=== PATIENT | male | born 1970 | race Hispanic/Latino ===

== ENCOUNTER 2017-03-08 01:39 | Emergency (ER) | payer MEDICAID | END 2017-03-08 03:39 | disposition left against medical advice (07) | LOC: EDH 01:39 | DX: Z53.21 Procedure and treatment not carried out due to patient leaving prior to being seen by health care provider (principal); Z88.0 Allergy status to penicillin ==

== ENCOUNTER 2017-05-29 00:11 | Emergency (ER) | payer MEDICAID ==
[2017-05-29 00:51] LABS: BASOPHILS % (AUTO) 0.4 % (0.0-5.0); EOSINOPHILS % (AUTO) 0.4 % (0.0-8.0); LYMPHOCYTES % (AUTO) 17.2 % (21.0-51.0); MEAN CORPUSCULAR HEMOGLOBIN 30.1 pg (27.0-33.0); MEAN CORPUSCULAR VOLUME 86.1 fL (79-99); MONOCYTES % (AUTO) 4.3 % (3.0-13.0); NEUTROPHILS % (AUTO) 77.7 % (40.0-77.0); PLATELET COUNT (AUTO) 217 K/uL (130-400); RED BLOOD CELL COUNT(AUTO) 5.46 MIL/uL (4.50-6.20); WHITE BLOOD COUNT (AUTO) 9.1 K/uL (4.8-10.8)
[2017-05-29 00:58] LABS: CREATININE 1.1 mg/dL (0.5-1.5); POTASSIUM 3.5 mmol/L (3.5-5.1)
[2017-05-29 01:03] LABS: ALBUMIN 3.8 g/dL (3.5-5.0); BILIRUBIN,TOTAL 1.2 mg/dL (0.2-1.0); TOTAL PROTEIN, SERUM 7.8 g/dL (6.0-8.3)
== END 2017-05-29 02:10 | disposition home or self-care (01) ==
LOC: EDH 00:11
DX: R11.0 Nausea (principal); T50.995A Adverse effect of other drugs, medicaments and biological substances, initial encounter; F32.9 Major depressive disorder, single episode, unspecified; Z88.0 Allergy status to penicillin; Y92.89 Other specified places as the place of occurrence of the external cause
CPT/HCPCS: 36415; 80053; 85025

== ENCOUNTER 2018-05-19 23:39 | Emergency (ER) | payer MEDICAID ==
[2018-05-20] MEDS ORDERED: HYDROXYZINE HCL 25 MG TABLET ONE (00:23)
== END 2018-05-20 00:38 | disposition home or self-care (01) ==
LOC: EDH 23:39
DX: F41.9 Anxiety disorder, unspecified (principal); F32.9 Major depressive disorder, single episode, unspecified

== ENCOUNTER 2024-03-20 00:32 | Emergency (ER) | payer MEDICAID ==
[~2024-03-20] VITALS: Ht 180.3 cm; Wt 129.3 kg
[2024-03-20] MEDS ORDERED: CLIN-141 PO (00:41)
[2024-03-20] MEDS ORDERED: KETO10TA2 PO (00:41)
--- NOTE | 2024-03-20 01:00 | ERN ---
General Chief Complaint: Tooth Ache/Pain Stated Complaint: TOOTHACHE Time Seen by MD: 00:36 Time Seen by Midlevel: 00:36 Source: patient History of Present Illness Initial Comments Patient is a 53-year-old male presenting to the emergency department with right lower dental pain has been ongoing for the last couple of days but progressively got worse tonight. Denies any fever, chills, or any other symptoms at this time. Allergies: Coded Allergies: No Known Allergies (Unverified Allergy, Unknown, 03/20/24) Home Meds Active Scripts Clindamycin HCl (Clindamycin HCl) 300 Mg Capsule, 1 CAP PO TID for 7 Days, #21 CAP 0 Refills Prov:AGNES ADAMS 03/20/24 Ketorolac Tromethamine (Ketorolac Tromethamine) 10 Mg Tablet, 1 TAB PO TID for pain for 5 Days, #15 TAB 0 Refills Prov:AGNES ADAMS 03/20/24 Past Medical History Past Medical History: No Pertinent History Past Surgical History: Other Surgical History Other: PENIS ROS Dictation CONSTITUTIONAL: Negative except for HPI HEAD/FACE: Negative except for HPI EENT: Negative except for HPI RESPIRATORY: Negative except for HPI GASTROINTESTINAL/ABDOMINAL: Negative except for HPI GENITOURINARY: Negative except for HPI MUSCULOSKELETAL: Negative except for HPI INTEGUMENTARY: Negative except for HPI NEUROLOGICAL/PSYCH: Negative except for HPI HEMATOLOGIC/LYMPHATIC: Negative except for HPI All Systems Negative, Except as noted above. 13 point review of systems assessed and all negative except for above. Physical Exam Physical Exam Dictation PHYSICAL EXAM: GENERAL: alert,, awake oriented x 3 HEENT: Dental caries to the right lower molar with surrounding gum inflammation concerning for a dental abscess NECK: Supple, no JVD, trachea midline LUNGS: Clear breath sounds bilaterally. No wheezes HEART: Regular rate and rhythm. Normal S1 and S2, without murmurs ABD: Abdomen soft, nontender. Bowel sounds present EXT: No clubbing or cyanosis, NEURO: Alert and oriented to person, follows commands MDM MDM: Differential diagnosis: Dental caries, dental abscess, gum abscess There are no social concerns with this patient. Prescription drug management Prescriptions will include: Clindamycin and Toradol Medical management and examination interpretation discussions were had by me with other qualified healthcare professionals as indicated for the patient's care. ED Course Orders Procedure Category Date Status Time Ketorolac PHA 03/20/24 Complete Tromethamine 30mg/Ml 01:00 Dexamethasone 4mg/Ml PHA 03/20/24 Complete 1ml Vial (Dexametha 01:00 Ceftriaxone 1g Vial PHA 03/20/24 Complete (Rocephine 1g Inj) 01:00 Current Medications Medications (Trade) Dose Ordered Sig/Claude Route PRN Reason Start Time Stop Time Status Last Admin Dose Admin Ceftriaxone Sodium (ROCEphine 1G INJ) 1 gm ONCE ONCE IM 03/20/24 01:00 03/20/24 01:01 DC Dexamethasone Sodium Phosphate (dexaMETHasone 4MG/ML 1ML VIAL) 6 mg ONCE ONCE IM 03/20/24 01:00 03/20/24 01:01 DC Ketorolac Tromethamine (toRADol) 30 mg ONCE ONCE IM 03/20/24 01:00 03/20/24 01:01 DC Vital Signs Date Time Temp Pulse Resp B/P (MAP) Pulse Ox O2 Delivery O2 Flow Rate FiO2 03/20/24 00:33 97.3 74 16 165/98 98 Room Air DX & DISP Disposition: Discharge Departure Impression: Primary Impression: Dental abscess Additional Impression: Dental caries Condition: Stable Scripts Clindamycin HCl (Clindamycin HCl) 300 Mg Capsule 1 CAP PO TID for 7 Days, #21 CAP 0 Refills Prov: AGNES ADAMS 03/20/24 Ketorolac Tromethamine (Ketorolac Tromethamine) 10 Mg Tablet 1 TAB PO TID for pain for 5 Days, #15 TAB 0 Refills Prov: AGNES ADAMS 03/20/24 Additional Instructions: Based on your physical examination it appears there is an infection to her right lower tooth. You were given antibiotics and pain medication in the emergency department. I have given you a prescription for pain medication and oral antibiotics for outpatient management. Please make sure you follow up with a dentist outpatient for further evaluation. Referrals: JUANJOSE MEJIA MD (PCP) I have reviewed the case, and I agree with, Diagnosis and Plan I performed the substantive portion of the visit. I have reviewed and personally made and approve the management plan that is documented in the note by myself or the DISHA. I acknowledge for responsibility for the patient's management plan. AGNES ADAMS Mar 20, 2024 01:00
[2024-03-20] MEDS: dexaMETHasone SOD PHOSPHATE 4 MG/ML 1ML VIAL IM ONE (03:09)
[2024-03-20] MEDS: cefTRIAXone 1G VIAL IM ONE (03:10)
[2024-03-20] MEDS: ketOROlac 30MG VIAL (30MG/ML) IM ONE (03:10)
[2024-03-20 03:20] VITALS: BP 167/93; PULSE 70; RESP 17; TEMP 98.5; O2SAT 97
== END 2024-03-20 03:30 | disposition home or self-care (01) ==
LOC: EDH 00:32
DX: K04.7 Periapical abscess without sinus (principal); K02.9 Dental caries, unspecified
CPT/HCPCS: 99284; 96372 ×3; J1100; J1885; J0696